=== PATIENT | female | born 1950 | race Caucasian/White ===

== ENCOUNTER 2017-07-24 10:59 | Outpatient (RCR) | payer MEDICARE | END 2017-08-05 | LOC: RESP 10:59 | PROVIDERS: ATTEND Internal Medicine | DX: J44.9 Chronic obstructive pulmonary disease, unspecified (principal) | CPT/HCPCS: G0238 ×5; G0424 ×5 ==

== ENCOUNTER 2017-08-07 13:46 | Outpatient (RCR) | payer MEDICARE | END 2017-09-04 | LOC: RESP 13:46 | PROVIDERS: ATTEND Internal Medicine | DX: J44.9 Chronic obstructive pulmonary disease, unspecified (principal) | CPT/HCPCS: G0238 ×3; G0424 ×3 ==

== ENCOUNTER → 2018-04-09 | Day surgery (SDC) | payer MEDICARE ==
[~2018-04-09] MED LIST: ALPRAZOLAM0.5 MG PO; COMBIVENT RESPIM4 GM IH; FENTANYL CITRATE/PF 100MCG/2 ML INJ ONE; GABAPENTIN300 MG PO; LIDOCAINE HCL 2% LOCAL INJ 5 ML SDV VIAL INJ ONE; LOSARTAN POTASS25 MG PO; MIDAZOLAM HCL 2 MG/2 ML VIAL ONE; PLAVIX75 MG PO; PROPOFOL IV EMULSION 10 MG/ML 20 ML VIAL ONE; REMERON15 M1 PO; SENNA LAXATIVE8.6 MG PO; SOMA350 MG PO; SYMBICORT 16010.2 GM INH; TYLENOL EXTRA500 MG PO; TYLENOL WITH C1 EACH PO; linzess PO
[2018-04-09 14:30] VITALS: BP 110/67
== END | disposition home or self-care (01) ==
LOC: OR 11:20
PROVIDERS: ATTEND Internal Medicine Gastroenterology
DX: K29.70 Gastritis, unspecified, without bleeding (principal); K44.9 Diaphragmatic hernia without obstruction or gangrene; K59.00 Constipation, unspecified; K58.9 Irritable bowel syndrome, unspecified; K64.8 Other hemorrhoids; J44.9 Chronic obstructive pulmonary disease, unspecified; I25.10 Atherosclerotic heart disease of native coronary artery without angina pectoris; I10 Essential (primary) hypertension; F32.9 Major depressive disorder, single episode, unspecified; F41.9 Anxiety disorder, unspecified; Z01.810 Encounter for preprocedural cardiovascular examination; Z79.02 Long term (current) use of antithrombotics/antiplatelets; Z86.73 Personal history of transient ischemic attack (TIA), and cerebral infarction without residual deficits; Z87.891 Personal history of nicotine dependence
CPT/HCPCS: 43239; 45378; 88305; 88312; 93005; J2001; J2250; J2704